=== PATIENT | male | born 1970 | race Asian ===

== ENCOUNTER 2023-05-03 06:39 | Day surgery (SDC) | payer MEDICAID ==
[~2023-05-03] VITALS: Ht 177.8 cm; Wt 70.3 kg
[2023-05-03 07:37] LABS: COVID19 ANTIGEN SOFIA FIA NEGATIVE (NEGATIVE)
[2023-05-03 08:30] VITALS: O2SAT 99
[2023-05-03] MEDS ORDERED: SIMETHICONE 40 MG/0.6 ML ML ONE (09:29)
[2023-05-03] MEDS ORDERED: MIDAZOLAM HCL 5 MG/5 ML VIAL ONE (09:29)
[2023-05-03] MEDS ORDERED: MEPERIDINE 100 MG INJ. 100 MG/ML VIAL ONE (09:29)
[2023-05-03 14:30] VITALS: BP_SYST 116; PULSE 78; RESP 10
== END 2023-05-03 11:25 | disposition home or self-care (01) ==
LOC: SDS 06:39 → SMU 06:40 → SDS 11:25
PROVIDERS: ATTEND Internal Medicine Gastroenterology
DX: Z12.11 Encounter for screening for malignant neoplasm of colon (principal); K57.30 Diverticulosis of large intestine without perforation or abscess without bleeding; K64.8 Other hemorrhoids; Z90.49 Acquired absence of other specified parts of digestive tract; Z98.890 Other specified postprocedural states
CPT/HCPCS: 36415; 45378; J2175; J2250